=== PATIENT | male | born 1995 | race Caucasian/White ===

== ENCOUNTER 2017-11-04 17:12 | Emergency (ER) | payer SELFPAY ==
[~2017-11-04] VITALS: Ht 177.8 cm; Wt 67.0 kg
[~2017-11-04 17:12] MED LIST: CLON.1 PO; CLON1 PO; GABA100C4 PO; KEPP1000 PO
[2017-11-04 17:21] VITALS: BP 146/67; PULSE 96; RESP 16; TEMP 98.6; O2SAT 99
--- NOTE | 2017-11-04 17:45 | RADRPT ---
EXAM DATE/TIME: 11/04/2017 17:34 [place] COMPARISON: No previous studies available for comparison. INDICATIONS : Left wrist pain. MEDICAL HISTORY : None. SURGICAL HISTORY : None. ENCOUNTER: Initial ACUITY: 2 days PAIN SCORE: 6/10 LOCATION: Left wrist. FINDINGS: Three view examination of the left wrist demonstrates no soft tissue swelling, dislocation, or fractu re. There is a tiny subchondral cyst involving the ulnar styloid process. The carpal bones are in no rmal alignment. The joint spaces are maintained. Bony mineralization is normal. CONCLUSION: No acute fracture or dislocation. Tiny subchondral cyst involving the ulnar styloid process. Rodri Rebollar MD on November 04, 2017 at 17:42 Board Certified Radiologist. This report was verified electronically.
[2017-11-04] MEDS ORDERED: IBUP1TAB7 PO (17:50)
--- NOTE | 2017-11-04 17:50 | PD ---
HPI Chief Complaint: Musculoskeletal Complaint Time Seen by Provider: 17:26 Travel History International Travel<30 days: No Contact w/Intl Traveler<30days: No Traveled to known affect area: No History of Present Illness HPI 22-year-old male presents to the emergency department with complaint of left wrist pain from Wednesday after picking up a heavy frying bowl with 1 hand and it injured his left wrist. Denies paresthesias, loss of sensation, decreased range of motion, decreased strength to the affected extremity. Denies swelling. Rates pain 2/10. Pain is worse with movement. Better at rest. Has not taken any medication or tried any treatments to alleviate his symptoms. No primary care provider. Allergies to Librium. Denies significant past medical history. Has no other medical complaints. No other modifying factors or associated signs and symptoms. PFSH Past Medical History Hx Anticoagulant Therapy: No ADD: Yes Anxiety: Yes Depression: Yes Cardiovascular Problems: No Chemotherapy: No Cerebrovascular Accident: No Diabetes: No Diminished Hearing: No Psychiatric: Yes Respiratory: No Immunizations Current: No Seizures: Yes ?: Not Social History Alcohol Use: Yes Tobacco Use: Yes (1ppd) Substance Use: Yes (THC, BENZOS, XANAX, DENIES AT PRESENT) Allergies-Medications (Allergen,Severity, Reaction): Coded Allergies: chlordiazepoxide (Verified Allergy, Severe, Swelling, 11/04/17) "THROAT SWELLING" Reported Meds & Prescriptions Reported Meds & Active Scripts Active Ibuprofen 800 Mg Tab 800 Mg PO Q8H PRN Review of Systems Except as stated in HPI: all other systems reviewed are Neg Physical Exam Narrative GENERAL: Well-nourished, well-developed male patient, in no acute distress SKIN: Warm and dry. HEAD: Atraumatic. Normocephalic. EYES: Pupils equal and round. No scleral icterus. No injection or drainage. ENT: Mucosa pink and moist. Airway patent. NECK: Trachea midline. CARDIOVASCULAR: Regular rate. RESPIRATORY: No accessory muscle use. GASTROINTESTINAL: Flat. MUSCULOSKELETAL: Left wrist with tenderness on palpation to the radial aspect; no erythema ; no edema; no obvious deformity; full range of motion; full cage shift manager strength and equal bilaterally. Left hand with full range of motion at all joints. Left upper extremity is supple and non-tense with 2+ radial pulse and sensory intact. No obvious deformities. No clubbing. No cyanosis. NEUROLOGICAL: Awake and alert. Oriented 3. No obvious cranial nerve deficits. Motor grossly within normal limits. Normal speech. PSYCHIATRIC: Appropriate mood and affect; insight and judgment normal. Data Data Last Documented VS Vital Signs Date Time Temp Pulse Resp B/P (MAP) Pulse Ox O2 Delivery O2 Flow Rate FiO2 11/04/17 17:21 98.6 96 16 146/67 (93) 99 Orders Orders Wrist, Complete ([id number]) (11/04/17 17:27) Ed Discharge Order (11/04/17 17:50) Splint Or Brace Apply/Monitor (11/04/17 17:50) [facility] Medical Decision Making Medical Screen Exam Complete: Yes Emergency Medical Condition: Yes Medical Record Reviewed: Yes Differential Diagnosis Wrist sprain, wrist injury, wrist fracture Narrative Course 22-year-old male with left wrist injury. After the patient pain medication he declined. Left wrist x-ray ordered. 1750: Left wrist x-ray concludes: No acute fracture or dislocation. Tiny subchondral cyst involving the ulnar styloid process. Patient provided a copy of the x-ray report. Instructed patient to follow-up if symptoms persist greater than 7-10 days. Velcro wrist splint provided for support. Ibuprofen prescribed for home. Instructed patient to follow up with primary care provider. Patient verbalizes understanding and agreement with treatment plan. Patient is medically cleared and stable for discharge. Discussed reasons to return to the emergency department. Patient agrees with treatment plan. The patients vital signs are stable and the patient is stable for outpatient follow- up and treatment. Patient discharged home, stable and in no acute distress. Diagnosis Primary Impression: Left wrist injury Qualified Codes: S69.92XA - Unspecified injury of left wrist, hand and finger( s), initial encounter Referrals: Hand Surgeon Primary Care Physician Patient Instructions: General Instructions, Wrist Sprain (ED) Departure Forms: Tests/Procedures, Work Release Enter return to work date: Nov 07, 2017 Additional Instructions: Tylenol or ibuprofen as directed and as needed to reduce pain Rest, ice, compress, and elevate extremity to decrease pain and inflammation Wrist Splint for support Avoid aggravating activity; increase activity as tolerated Follow-up with primary care provider Return to the emergency department immediately with worsening symptoms Med/Other Pt SpecificInfo: Prescription(s) given Scripts Ibuprofen (Ibuprofen) 800 Mg Tab 800 MG PO Q8H Y for PAIN SCALE 1 TO 10, #20 TAB 0 Refills Prov: Sarah Powell 11/04/17 Disposition: 01 DISCHARGE HOME Condition: Stable Sarah Powell Nov 04, 2017 17:50
== END 2017-11-04 18:01 | disposition home or self-care (01) ==
LOC: PHEFT 17:12
DX: S69.92XA Unspecified injury of left wrist, hand and finger(s), initial encounter (principal); F17.200 Nicotine dependence, unspecified, uncomplicated; Z86.59 Personal history of other mental and behavioral disorders; X50.0XXA Overexertion from strenuous movement or load, initial encounter
CPT/HCPCS: 73110; 99283; L3908